=== PATIENT | female | born 1940 | race Caucasian/White ===

== ENCOUNTER 2017-06-02 22:11 | Emergency (ER) | payer MEDICARE, OTHER ==
--- NOTE | 2017-06-02 22:49 | EDM.PDOC ---
ED HPI GENERAL MEDICAL PROBLEM - General Stated Complaint: DIZZINESS,WEAK Time Seen by Provider: 06/02/17 22:39 Source of Information: Reports: Patient, Family History Limitations: Reports: No Limitations - History of Present Illness INITIAL COMMENTS - FREE TEXT/NARRATIVE: [place] and started having some left sided low back pain similar to what she usually has. She went to sit down in a chair, became nauseated and threw up. She "spaced out " for a few seconds and didnt answer her daughter when she called her name. Now the nausea is gone but she still feels weak and a little dizzy with standing. Onset: Today, Sudden Onset Date: 06/02/17 Onset Time: 20:30 Duration: Hour(s):, Improving Severity: Moderate Improves with: Reports: Rest Worsens with: Reports: Movement Associated Symptoms: Reports: Nausea/Vomiting, Weakness. Denies: Confusion, Chest Pain, Cough, cough w sputum, Diaphoresis, Fever/Chills, Headaches, Loss of Appetite, Malaise, Shortness of Breath, Syncope Treatments BRIM CURLER: Reports: Other (see below) (none) ED ROS GENERAL - Review of Systems Review Of Systems: See Below Constitutional: Reports: Weakness, Fatigue. Denies: Fever, Chills, Malaise, Night Sweats, Diaphoresis, Weight Loss HEENT: Reports: No Symptoms. Denies: Ear Pain, Eye Discharge, Hearing Loss, Sinus Problem, Throat Pain, Throat Swelling, Vertigo, Vision Change Respiratory: Reports: No Symptoms. Denies: Shortness of Breath, Wheezing, Pleuritic Chest Pain, Cough Cardiovascular: Reports: Lightheadedness. Denies: Chest Pain, Dyspnea on Exertion, Edema, Palpitations, PND, Syncope Endocrine: Reports: No Symptoms GI/Abdominal: Reports: Nausea, Vomiting. Denies: Abdominal Pain, Black Stool, Bloody Stool, Constipation, Diarrhea, Distension, Hematochezia, Melena : Reports: No Symptoms. Denies: Discharge, Dysuria, Flank Pain, Frequency, Hematuria Musculoskeletal: Reports: Other (left sided low back pain similar to what she has had intermittently for about a year or longer, no radicular pain noted) Skin: Reports: No Symptoms Neurological: Reports: Dizziness, Weakness. Denies: Confusion, Headache, Numbness, Seizure, Syncope, Tingling, Tremors, Trouble Speaking, Difficulty Walking, Change in Speech, Gait Disturbance Psychiatric: Reports: No Symptoms Hematologic/Lymphatic: Reports: No Symptoms Immunologic: Reports: No Symptoms ED EXAM, DIZZINESS - Physical Exam Exam: See Below Exam Limited By: No Limitations General Appearance: Alert, WD/WN, No Apparent Distress Eye Exam: Bilateral Eye: EOMI, PERRL Ears: Normal External Exam, Normal Canal, Hearing Grossly Normal, Normal TMs Nose: Normal Inspection, Normal Mucosa, No Blood Throat/Mouth: Normal Inspection, Normal Lips, Normal Teeth, Normal Oropharynx, No Airway Compromise Head Exam: Atraumatic, Normocephalic Neck: Normal Inspection, Supple, Non-Tender, Full Range of Motion Respiratory/Chest: No Respiratory Distress, No Accessory Muscle Use, Chest Non- Tender, Rales, Other (widely scattered bibasilar rales, pt is a smoker) Cardiovascular: Normal Peripheral Pulses, No Edema, No Gallop, No Murmur, Other (irregular rhythm appears to be PAC on heart monitor) GI/Abdominal: Normal Bowel Sounds, Soft, Non-Tender, No Organomegaly, No Distention, No Abnormal Bruit, No Mass (Female) Exam: Deferred Rectal (Female) Exam: Deferred Neurological: Alert, Normal Mood/Affect, Normal Dorsiflexion, CN II-XII Intact, Normal Gait, Normal Reflexes, No Motor/Sensory Deficits, Oriented x 3 Back Exam: Normal Inspection, Full Range of Motion. No: CVA Tenderness (L), CVA Tenderness (R) Extremities: Normal Inspection, Normal Range of Motion, Non-Tender, No Pedal Edema, Normal Capillary Refill Psychiatric: Normal Affect, Normal Mood Skin Exam: Warm, Dry, Intact, Normal Color, No Rash EKG INTERPRETATION EKG Date: 06/02/17 Time: 22:50 Rhythm: NSR (with PACs) Rate (Beats/Min): 76 Walker: Other (intraventricular conduction delay) P-Wave: Present QRS: Other (137 ms) ST-T: Other (diffuse depression) QT: Prolonged Comparison: NA - No Prior EKG (previous EKG not available to compare to) Course - Orders/Labs/Meds Orders: Active Orders 24 hr Category Date Time Status EKG 12 Lead [EKG Documentation Completion] [RC] STAT Care 06/02/17 22:41 Active CXR [Chest 2V] [CR] Stat Exams 06/02/17 22:41 Taken Labs: Laboratory Tests 06/02/17 06/02/17 Range/Units 22:44 22:44 WBC 9.0 (4.0-10.0) x10^3/uL RBC 4.45 (4.00-5.50) x10^6/uL Hgb 13.4 (12.0-16.0) g/dL Hct 41.1 (33.0-47.0) % MCV 92.4 (78.0-93.0) fL MCH 30.1 (26.0-32.0) pg MCHC 32.6 (32.0-36.0) g/dL RDW Coeff of Jourdan 13.2 (10.0-15.0) % Plt Count 255 (130-400) x10^3/uL Sodium 141 (136-145) mmol/L Potassium 3.6 (3.5-5.1) mmol/L Chloride 104 (98-107) mmol/L Carbon Dioxide 29 (21-32) mmol/L BUN 9 (7-18) mg/dL Creatinine 0.9 (0.55-1.02) mg/dL Est Cr Clr Drug Dosing TNP Estimated GFR (MDRD) > 60 Glucose 108 H (74-106) mg/dL Calcium 9.8 (8.5-10.1) mg/dL Corrected Calcium 10.04 (8.5-10.1) mg/dL Total Bilirubin 0.3 (0.2-1.0) mg/dL AST 13 L (15-37) U/L ALT 15 (14-59) U/L Alkaline Phosphatase 61 (46-116) U/L Creatine Kinase 55 (26-192) U/L Creatine Kinase Index 3.8 (0.0-4.0) % CK-MB (CK-2) 2.1 (0.0-3.6) ng/mL Troponin I < 0.017 (<=0.056) ng/mL Total Protein 8.0 (6.4-8.2) g/dL Albumin 3.7 (3.4-5.0) g/dL Globulin 4.3 Albumin/Globulin Ratio 0.86 TSH, Ultra Sensitive 5.429 H (0.358-3.74) uIU/mL - Re-Assessments/Exams Free Text/Narrative Re-Assessment/Exam: 06/03/17 2330 Patient evaluated in ER and labs and diagnositics done and reviewed with patient and daughter. Nothing acute found on labs, EKG or chest x-ray. Symptoms had all resolved prior to discharge. Patient had an irregular pulse and EKG showed sinus rhythm with PACs but patient is asymptomatic. Patient is to follow up with regular provider early this week to review labs and EKG for any further recomendations. She is strongly encouraged to drink more fluids besides just coffee. She is to return to ER or clinic if symptoms re-ocurr or she develops new symptoms. She and daughter voiced understanding. Departure - Departure Time of Disposition: 00:52 Disposition: Home, Self-Care 01 Condition: Good Clinical Impression: Dizziness Nausea & vomiting Qualifiers: Vomiting type: unspecified Vomiting Intractability: non-intractable Qualified Code(s): R11.2 - Nausea with vomiting, unspecified - Discharge Information Instructions: Dizziness, [id number] Referrals: Maria R Ace, [Primary Care Provider] - Additional Instructions: Go see your regular provider early next week to be reevaluated and review labs and EKG. Return to ER if symptoms reoccur or worsen. You may need a cardiology referral or stress test and/or echocardiogram - My Orders Last 24 Hours: My Active Orders 06/02/17 22:41 EKG 12 Lead [EKG Documentation Completion] [RC] STAT CXR [Chest 2V] [CR] Stat - Assessment/Plan Last 24 Hours: My Active Orders 06/02/17 22:41 EKG 12 Lead [EKG Documentation Completion] [RC] STAT CXR [Chest 2V] [CR] Stat
[2017-06-02 23:21] LABS: CHLORIDE,CL 104 mmol/L (98-107); SODIUM,NA 141 mmol/L (136-145)
== END 2017-06-03 01:00 | disposition home or self-care (01) ==
LOC: VM.ED 22:11
DX: R42 Dizziness and giddiness (principal); R11.2 Nausea with vomiting, unspecified
CPT/HCPCS: 36415; 71020; 80053; 82550; 82553; 84443; 84484; 85027; 93005; 99283-GF; 99284

== ENCOUNTER 2022-02-17 11:40 | Emergency (ER) | payer MEDICARE, OTHER ==
[2022-02-17] MEDS ORDERED: Sodium Chloride 0.9% 500 ML IV ONE (12:36)
[2022-02-17 13:02] LABS: CHLORIDE,CL 107 mmol/L (98-107); SODIUM,NA 141 mmol/L (136-145)
[2022-02-17 13:04] LABS: ANION GAP 17.3 mmol/L (5-15)
== END 2022-02-17 13:43 | disposition home or self-care (01) ==
LOC: VM.ED 11:40
DX: I95.9 Hypotension, unspecified (principal); I10 Essential (primary) hypertension
CPT/HCPCS: 36415; 80048; 85025; 99284; J7030